=== PATIENT | female | born 1940 | race Caucasian/White ===

== ENCOUNTER 2017-01-26 11:39 | Observation (INO) | payer MEDICARE, OTHER ==
[2017-01-26 12:11] LABS: #Basophils 0.1 thou/uL (0.0-0.2); #Eosinphils 0.1 thou/uL (0.0-0.7); #Lymphocytes 2.8 thou/uL (1.20-3.40); #Monocytes 0.6 thou/uL (0.11-0.59); #Neutrophils 3.5 thou/uL (1.40-6.50); %Basophils 1.4 % (0.0-1.0); %Eosinophils 1.4 % (0.0-10.0); %Lymphocytes 39.3 % (21.0-51.0); %Monocytes 8.8 % (0.0-10.0); Hematocrit 48.7 % (36.0-47.0); Mean Platelet Volume 7.8 fL (7.4-10.4); Red Blood Cell (RBC) Count 5.11 mill/uL (4.20-5.40); White Blood Cell (WBC) Count 7.2 thou/uL (4.8-10.8)
[2017-01-26 12:34] LABS: ALT (SGPT) 13 U/L (8-55); AST (SGOT) 27 U/L (5-34); Alkaline Phosphatase 115 U/L (40-150); Anion Gap 19 mmol/L (10-20); BUN (Urea Nitrogen) 12 mg/dL (9.8-20.1); Bilirubin, Total 0.6 mg/dL (0.2-1.2); Calc. Creatinine Clearance 0 mL/min (70-130); Calcium 9.8 mg/dL (7.8-10.44); Carbon Dioxide 21 mmol/L (23-31); Chloride 105 mmol/L (98-107); Estimated GFR-MDRD 57; Globulin 4.3 g/dL (2.4-3.5); Protein, Total 8.4 g/dL (6.0-8.3)
[2017-01-26 12:37] LABS: Troponin I Less than 0.010 ng/mL (< 0.028)
--- NOTE | 2017-01-26 13:26 | RAD ---
ONE VIEW CHEST: HISTORY: Chest pain. Shortness of breath. COMPARISON: 02/24/2013 FINDINGS' Portable upright chest demonstrates slight elongation of the aorta. Normal cardiac silhouette. Pul monary vessels and pulmonary hilum are normal. No consolidation or mass. No pneumothorax or osseou s abnormality. IMPRESSION: No acute cardiopulmonary process. POS: [facility]
[2017-01-26] MEDS ORDERED: Ondansetron ODT 4 MG TAB SL PRN (15:26)
[2017-01-26] MEDS ORDERED: Ondansetron HCl/PF 4 MG/2 ML Vial IVP PRN ×2 (15:26→15:32)
[2017-01-26] MEDS ORDERED: Acetaminophen 325 MG TAB PO PRN ×2 (15:26→15:32)
[2017-01-26] MEDS ORDERED: Bisacodyl 5 MG TAB PO PRN (15:32)
[2017-01-26] MEDS ORDERED: Guaifenesin DM 100-10/5 ML UDCUP PO PRN (15:32)
[2017-01-26 15:44] LABS: Troponin I 0.013 ng/mL (< 0.028)
[2017-01-26 16:05] VITALS: BMI 25.8
[2017-01-26] MEDS ORDERED: Metoprolol Tartrate 25 MG TAB PO SCH (18:00)
[2017-01-26 18:29] LABS: Troponin I 0.013 ng/mL (< 0.028)
--- NOTE | 2017-01-26 19:17 | HP ---
CHIEF COMPLAINT: Chest pain and shortness of breath. HISTORY OF PRESENT ILLNESS: This is a 76-year-old white female with a history of hypertension, but has not needed any medicines recently, who for the last 2 months has had episodes usually when lying down at night of racing heart associated with shortness of breath and mild chest pressure, this res olved spontaneously within an hour. She is able to go back to sleep; however, today while she was a t the store, she had a sudden onset of shortness of breath and chest pressure substernal, this was m uch more severe. She had to sit down and over the next 30 minutes, the pain and pressure started ra diating to her left arm. She went into urgent care and she was told to come to the emergency room. In the ER, she was found to be in atrial fibrillation with a rate in the 120s. She was given a sin gle dose of IV diltiazem 20 mg, at which point her heart rate dropped to the 80s and she had resolut ion of all of her shortness breath and chest pain, and pain in her arm. Patient now feels back to h er baseline. On the monitor, patient is in a more regular rhythm at 80 beats per minute, unable to tell if this is still atrial fibrillation or if it has gone back into sinus rhythm due to a lot of i nterference with a baseline on the monitor in the ER. PAST MEDICAL HISTORY: 1. Hypertension. 2. Osteoporosis with multiple compression fractures of the thoracic spine. PAST SURGICAL HISTORY: 1. Hysterectomy. 2. Left knee arthroscopy. 3. Cholecystectomy for gallstones. 4. Left breast benign mass excision. ALLERGIES: No known drug allergies. CURRENT MEDICATIONS: Tramadol as needed. SOCIAL HISTORY: No tobacco, alcohol, or illicit drug use. She lives with her . FAMILY HISTORY: Stroke in her grandmother and breast cancer that killed one of her daughters. REVIEW OF SYSTEMS: Constitutional: No fevers, no chills, no weight changes. Eyes: No double visi on or blurred vision. ENT: No congestion, drainage, or sore throat. Cardiovascular: See HPI. Pu lmonary: She has a chronic dry cough and the shortness of breath since resolved in the emergency ro om. No other pulmonary symptoms. Gastrointestinal: No abdominal pain, no nausea or vomiting. Cur rently, no diarrhea or constipation. She does get nauseated easily though especially when she has n ot eaten for a long time, this resolves with food. Genitourinary: No dysuria or hematuria. Muscul oskeletal: No muscle aches or unusual joint pains. Extremities: She does have significant mid carolin k pain around the mid-thoracic region from her thoracic vertebral fractures. Skin: No rashes or ot her lesions that she has noticed. Neurologic: No numbness, tingling, or focal weakness. PHYSICAL EXAMINATION: VITAL SIGNS: On presentation, blood pressure 164/109, pulse 122, respirations 26, O2 sat 98% on ro om air, temperature 97.8. After the diltiazem, her pulse rate is now 76, her blood pressure was 160 /100 when I was in the room; it has fluctuated between that and the 120s here in the emergency room. GENERAL: This is a well-developed elderly female in no apparent distress. HEENT: Pupils equal, round, and reactive to light. Extraocular movements intact. Oropharynx clear without lesions, erythema, or exudate. NECK: Supple. No lymphadenopathy, no thyroid nodules or enlargement, no JVD. HEART: Currently with regular rate and rhythm, no murmurs. LUNGS: Clear to auscultation bilaterally. No wheezes, crackles, or rhonchi. ABDOMEN: Soft, generally tender to palpation, which states is normal since her compression fracture s last year, but with no significant guarding. No masses, no organomegaly. Normoactive bowel sound s. EXTREMITIES: She has trace pretibial edema and loss of her superficial varicosities, otherwise extr emities are without significant abnormality. SKIN: No rashes or other lesions besides the varicose veins. NEUROLOGIC: Cranial nerves intact and equal bilaterally. No facial droop. Deep tendon reflexes ar e 2+ in all extremities and strength is 5/5 in all extremities. PSYCHIATRIC: Alert and oriented x3. Normal mood and affect. Intact judgment. LABORATORY DATA: CBC with mildly elevated hemoglobin and hematocrit of 16.1 and 48.7. The remainde r is normal. Complete metabolic panel was notable only for carbon-dioxide of 21, total protein of 8 .4. The remainder is completely normal. The cardiac marker set is negative x1. Chest x-ray, I do review the chest x-ray done in the emergency room along with the radiologist's rep ort. Her chest x-ray shows no evidence of cardiomegaly, no pulmonary infiltrates, no acute cardiopu lmonary process. ASSESSMENT: 1. Atrial fibrillation with rapid ventricular rate, this is new onset, now appears to either slow t o resolve with single dose of diltiazem. We will put the patient in observation in the hospital and will have Cardiology come to see the patient to determine if strategy for managing this patient's a trial fibrillation, given her age and comorbidities. 2. Chest pain secondary to #1, now resolved. Question of possible ischemic disease that responded to the stress of the atrial fibrillation, as it was not really that fast heartbeat, and I will discu ss with Cardiology and consider a stress test. For now, we will give daily aspirin. 3. Gastrointestinal prophylaxis. Put the patient on Pepcid while in the hospital. 4. Deep venous thrombosis prophylaxis. Put the patient on sequential compression devices and TEDs on bed and will give her for now just prophylactic dose of Lovenox can increase to therapeutic if Ca rdiology decides to anticoagulate her. 5. CODE STATUS: The patient is a FULL CODE. Should she be incapacitated her Connor Alex, Sr would be her medical decision maker.
[2017-01-26] MEDS: Docusate 100 MG CAP PO SCH (21:01)
[2017-01-26] MEDS: Famotidine 20 MG TAB PO SCH (21:01)
[2017-01-27] MEDS: traMADol HCl 50 MG TAB PO PRN ×2 (00:07→10:05)
[2017-01-27 05:44] LABS: #Eosinphils 0.2 thou/uL (0.0-0.7); #Lymphocytes 2.7 thou/uL (1.20-3.40); #Monocytes 0.6 thou/uL (0.11-0.59); #Neutrophils 2.8 thou/uL (1.40-6.50); %Basophils 0.8 % (0.0-1.0); %Eosinophils 2.8 % (0.0-10.0); %Lymphocytes 42.9 % (21.0-51.0); %Monocytes 9.9 % (0.0-10.0); Hematocrit 41.1 % (36.0-47.0); Mean Platelet Volume 7.3 fL (7.4-10.4); Red Blood Cell (RBC) Count 4.27 mill/uL (4.20-5.40); White Blood Cell (WBC) Count 6.4 thou/uL (4.8-10.8)
--- NOTE | 2017-01-27 05:46 | CON ---
DATE OF CONSULTATION: 01/26/2017 HISTORY OF PRESENT ILLNESS: Lynsey Alex is a 76-year-old white female with previous history of hypertension and hypercholesterolemia. She states that approximately 1 year ago, her blood pressure medicine was stopped because she did not need it any more. She was on cholesterol medicines for a period of time , but that was also stopped. Over the last month, she has noted episodes where she will feel her heart beating very rapidly, she will become short of breath, have chest pressure and this will last approximately 5 minutes. She has had 4 such episodes over the last month. Then today at approximately 9:00 a.m., she again had the onset of the same type of symptoms; however, this did not resolve. She came to the emergency room and was found to be in atrial fibrillation with fast ventricular response. She was given Cardizem 20 mg IV and apparently converted to sinus rhythm. She denies any previous episodes such as this except over the last month. PAST MEDICAL HISTORY: Hypertension, hypercholesterolemia. No history of diabetes. OPERATIONS: Left knee surgery, breast lumpectomy and laparoscopic cholecystectomy. MEDICATIONS: Aspirin 325 p.r.n. and tramadol 50 q.4 hours. ALLERGIES: CODEINE, SULFAMETHOXAZOLE. SOCIAL HISTORY: She does not smoke or drink. REVIEW OF SYSTEMS: Twelve point review of systems is otherwise unremarkable except for compression fractures 1 year ago when she had viral infection with significant coughing. PHYSICAL EXAMINATION: VITAL SIGNS: 140/81, pulse 77, sinus rhythm on the monitor. When she presented , her blood pressure was 164/109 with a pulse of 122. HEENT: PERRL. NECK: Supple. CHEST: Clear. CARDIAC: S1 and S2 are normal, without any S3, S4 or murmurs. Carotid upstrokes normal, without bruits. ABDOMEN: Normal bowel sounds, without tenderness or organomegaly. EXTREMITIES: Revealed no clubbing, cyanosis or edema. NEUROLOGIC: Grossly intact. LABORATORY: EKG reveals atrial atrial fibrillation with fast ventricular response as well as possible old inferior infarct. Hemoglobin 16.1, hematocrit 48.7, white count 7200, platelets 251. Sodium 141, potassium 4.0, chloride 105 , carbon dioxide 21, BUN 12, creatinine 0.95. Troponin I x2 are normal. TSH is normal. IMPRESSION: 1. Paroxysmal atrial fibrillation over the last month. 2. Hypertension, on no medications for one year with blood pressure elevated at the time of admission. 3. Chest discomfort. 4. History of hypercholesterolemia. 5. History of compression fractures. PLAN: Ms. Alex will be started on low dose metoprolol. Echocardiogram will be performed to assess left ventricular function. Also, with her chest discomfort associated with the atrial fibrillation she will undergo adenosine Cardiolite testing. MTDD
[2017-01-27 06:07] LABS: Anion Gap 12 mmol/L (10-20); BUN (Urea Nitrogen) 16 mg/dL (9.8-20.1); Calc. Creatinine Clearance 58 mL/min (70-130); Calcium 8.6 mg/dL (7.8-10.44); Carbon Dioxide 23 mmol/L (23-31); Chloride 107 mmol/L (98-107); Cholesterol 210 mg/dl (< 200 Desired); Estimated GFR-MDRD 70; LDL Cholesterol, Calculated 149 mg/dL
[2017-01-27] MEDS ORDERED: Aspirin 325 mg Enteric Coated Tablet PO PRN (07:20)
--- NOTE | 2017-01-27 07:22 | PDOC.PN ---
- Subjective Encounter Start Date: 01/27/17 Encounter Start Time: 07:25 Subjective: Patient with a few self limited episodes of palpitations and SOB overnight. -: Remained in SR on monitor without A-fib overnight. No chest pain. Doing -: well this AM, just a little nauseated from not eating which is nml for her. - Objective Resuscitation Status: Resuscitation Status FULL:Full Resuscitation MAR Reviewed: Yes Vital Signs & Weight: Vital Signs (12 hours) Temp Pulse Resp BP Pulse Ox 01/27/17 05:05 97.5 F L 62 16 134/61 95 01/26/17 23:43 97.2 F L 62 18 128/70 95 01/26/17 19:27 98.2 F 80 16 185/72 H 95 Weight Weight 136 lb 11.2 oz I&O: 01/26/17 01/27/17 01/28/17 06:59 06:59 06:59 Intake Total 500 Output Total 335 Balance 165 Result Diagrams: 01/27/17 05:20 01/27/17 05:20 EKG Reviewed by me: Yes (Sinus rhythm all night) Phys Exam - Physical Examination Constitutional: NAD HEENT: moist MMs Respiratory: no wheezing, no rales, no rhonchi, clear to auscultation bilateral Cardiovascular: RRR, no significant murmur Gastrointestinal: soft, positive bowel sounds Musculoskeletal: no edema Neurological: non-focal, moves all 4 limbs Psychiatric: normal affect, A&O x 3 Dx/Plan (1) Atrial fibrillation with RVR Code(s): I48.91 - UNSPECIFIED ATRIAL FIBRILLATION Status: Acute Comment: ECHO, Stress test, Metoprolol (2) Chest pain Code(s): R07.9 - CHEST PAIN, UNSPECIFIED Status: Resolved (3) Hypertension Code(s): I10 - ESSENTIAL (PRIMARY) HYPERTENSION Status: Chronic - Plan cont current plan of care, out of bed/ambulate, DVT proph w/lovenox * . - Discharge Day Encounter end time: 07:45
[2017-01-27] MEDS: Docusate 100 MG CAP PO SCH ×2 (09:28→20:07)
[2017-01-27] MEDS: Enoxaparin Sodium 40 MG/0.4 ML SYRINGE SC SCH (09:29)
[2017-01-27] MEDS: Ondansetron ODT 4 MG TAB PO PRN (09:29)
[2017-01-27] MEDS ORDERED: Nitroglycerin 0.4 MG TAB (25 Tab Bottle) ONE (09:56)
[2017-01-27 11:45] LABS: Troponin I Less than 0.010 ng/mL (< 0.028)
[2017-01-27] MEDS: Famotidine 20 MG TAB PO SCH ×2 (13:02→20:07)
[2017-01-27] MEDS: Atorvastatin Calcium 40 MG TAB PO SCH (20:07)
--- NOTE | 2017-01-28 07:52 | PDOC.PN ---
- Subjective Encounter Start Date: 01/28/17 Encounter Start Time: 09:00 Subjective: Patient with no more chest pain. No more palpitations this AM. - Objective Resuscitation Status: Resuscitation Status FULL:Full Resuscitation MAR Reviewed: Yes Vital Signs & Weight: Vital Signs (12 hours) Temp Pulse Resp BP Pulse Ox 01/28/17 07:19 97.3 F L 63 16 175/77 H 95 01/28/17 03:00 97.8 F 62 16 134/63 93 L 01/27/17 23:22 97.7 F 57 L 15 144/64 H 94 L 01/27/17 20:08 97.3 F L 59 L 15 Weight Weight 139 lb I&O: 01/27/17 01/28/17 01/29/17 06:59 06:59 06:59 Intake Total 500 770 Output Total 335 300 Balance 165 470 Result Diagrams: 01/27/17 05:20 01/27/17 05:20 Phys Exam - Physical Examination Constitutional: NAD HEENT: moist MMs Respiratory: no wheezing, no rales, no rhonchi Cardiovascular: RRR, no significant murmur Gastrointestinal: soft, positive bowel sounds Neurological: non-focal, moves all 4 limbs Psychiatric: normal affect, A&O x 3 Dx/Plan (1) Atrial fibrillation with RVR Code(s): I48.91 - UNSPECIFIED ATRIAL FIBRILLATION Status: Acute Comment: ECHO, Stress test, Metoprolol (2) Chest pain Code(s): R07.9 - CHEST PAIN, UNSPECIFIED Status: Resolved Comment: Recurrent pain yesterday without afib, only resting portion ST done, active part today (3) Hypertension Code(s): I10 - ESSENTIAL (PRIMARY) HYPERTENSION Status: Chronic - Plan cont current plan of care, out of bed/ambulate Stress test and cath if needed per cardiology. * . - Discharge Day Encounter end time: 09:30
[2017-01-28] MEDS: Docusate 100 MG CAP PO SCH ×3 (08:35→21:28)
[2017-01-28] MEDS: Ondansetron ODT 4 MG TAB PO PRN (08:35)
[2017-01-28] MEDS: Famotidine 20 MG TAB PO SCH ×2 (08:35→20:01)
[2017-01-28] MEDS: Enoxaparin Sodium 40 MG/0.4 ML SYRINGE SC SCH (13:24)
--- NOTE | 2017-01-28 13:34 | NM ---
CARDIAC SPECT: HISTORY: A 76-year-old female with chest pain, hypertension, dyslipidemia, and atrial fibrillation. TECHNIQUE: A myocardial perfusion scan was performed using the single-isotope 1-day protocol with Technetium 99m sestamibi. Nine mCi were injected intravenously for the rest exam followed by 30 mCi for the stress study. Pharmacologic stress with adenosine is monitored and interpreted by [facility] Nurse Pedro tioner. FINDINGS: Homogeneous tracer distribution is seen in the myocardial segments on stress and rest images without fixed or reversible defects. The TID ratio measures 1.90. GATED SPECT LVEF: 84%. WALL MOTION EXAM: Normal. IMPRESSION: 1. TID ratio is 1.90. Clinical correlation is recommended. 2. No reversible or fixed defects are identified. POS: [facility]
[2017-01-28] MEDS ORDERED: ADENOSINE 60 MG/20 ML VIAL ONE (14:34)
[2017-01-28] MEDS: traMADol HCl 50 MG TAB PO PRN (17:17)
[2017-01-28] MEDS ORDERED: Communication Order-Pharmacy FS SCH (18:30)
[2017-01-28] MEDS: Atorvastatin Calcium 40 MG TAB PO SCH (20:01)
[2017-01-28] MEDS: Nitroglycerin 2% Ointment 1 INCH/1 GM Packet TOP SCH (21:27)
[2017-01-29] MEDS: Famotidine 20 MG TAB PO SCH (05:07)
[2017-01-29] MEDS: traMADol HCl 50 MG TAB PO PRN ×2 (05:08→09:18)
[2017-01-29] MEDS: Docusate 100 MG CAP PO SCH (05:09)
[2017-01-29] MEDS: Nitroglycerin 2% Ointment 1 INCH/1 GM Packet TOP SCH (05:09)
[2017-01-29] MEDS ORDERED: Sodium Chloride 0.9% 1,000 ML IV SCH (06:00)
[2017-01-29] MEDS ORDERED: Heparin 10,000 UNITS/1 ML VIAL ONE (06:41)
[2017-01-29] MEDS ORDERED: Heparin 1000 UNIT/NS 500ML(OR) 1,000 ML ONE (06:42)
[2017-01-29] MEDS ORDERED: Fentanyl 100 MCG/2 ML VIAL ONE (07:16)
[2017-01-29] MEDS ORDERED: Midazolam HCl 2 mg/2 ml Vial ONE (07:16)
[2017-01-29] MEDS ORDERED: Protamine Sulfate 50 MG/5 ML VIAL ONE (07:37)
[2017-01-29] MEDS ORDERED: Sodium Chloride 0.9% 200 ML IV SCH (07:45)
--- NOTE | 2017-01-29 07:47 | EKG ---
Test Reason : Blood Pressure : / mmHG Vent. Rate : 071 BPM Atrial Rate : 071 BPM P-R Int : 248 ms QRS Dur : 070 ms QT Int : 412 ms P-R-T Axes : 047 -16 051 degrees QTc Int : 447 ms Sinus rhythm with 1st degree A-V block Inferior infarct (cited on or before 27-DEC-2007) Abnormal ECG When compared with ECG of 26-JAN-2017 11:42, (Unconfirmed) Sinus rhythm has replaced Atrial fibrillation Vent. rate has decreased BY 50 BPM Serial changes of Inferior infarct Present Confirmed by POOJA YOUNGER, SMavis ([id number]) on 01/29/2017 7:46:48 AM Referred By: JOYCE Confirmed By:DR. Michael PATTON MD
[2017-01-29] MEDS ORDERED: Ketorolac Tromethamine 30 MG/ML VIAL IVP PRN (11:20)
[2017-01-29] MEDS ORDERED: Iopamidol 370 76% 100 ML VIAL ONE (15:10)
[2017-01-29 16:12] VITALS: BP 126/59; TEMP 98.1
--- NOTE | 2017-01-30 00:49 | DIS ---
DATE OF ADMISSION: 01/26/2017 DATE OF DISCHARGE: 01/29/2017 PRIMARY DISCHARGE DIAGNOSIS: Chest pain. SECONDARY DISCHARGE DIAGNOSES: 1. Hypertension. 2. Osteoporosis with multiple compression fractures. HOSPITAL COURSE: The patient is a 76-year-old female with a history of hypertension that presented w ith complaints of palpitations, chest pain, and shortness of breath. The patient was admitted and se en by the [facility] service. The patient had an echocardiogram which showed an ejection fraction of 50% -55%, mild mitral regurgitation, mild tricuspid regurgitation and mild pulmonic regurgitation. The patient also underwent an angiogram. The angiogram showed no stenosis in the left main coronar y artery, no disease in the left anterior descending coronary artery, nor the RCA. There was 20% hermann nosis of the left circumflex. The patient was deemed stable for discharge with outpatient follow up and Cardiology. DISCHARGE DISPOSITION: To home. DISCHARGE DIET: Heart healthy. DISCHARGE MEDICATIONS: Please see medication rec list. PHYSICAL EXAMINATION: HEAD: Normocephalic, atraumatic. EYES: PERRL. Extraocular muscles intact. CARDIAC: Regular rate and rhythm, no murmurs, rubs or gallops. LUNGS: Clear to auscultation. ABDOMEN: Nontender, nondistended. EXTREMITIES: No clubbing, cyanosis or edema. FOLLOWUP: The patient is to follow up with her PCP within 1-2 weeks. She is to follow up in Cardiol ogy Clinic with Dr. Moreno, who was going to give the patient a 30-day heart monitor to monitor for cardiac arrhythmias.
--- NOTE | 2017-03-06 16:03 | EKG ---
Test Reason : Blood Pressure : / mmHG Vent. Rate : 121 BPM Atrial Rate : 153 BPM P-R Int : 000 ms QRS Dur : 064 ms QT Int : 320 ms P-R-T Axes : 000 -13 054 degrees QTc Int : 454 ms Atrial fibrillation with rapid ventricular response Inferior infarct , age undetermined Abnormal ECG Confirmed by HERNAN BHAKTA MD ([id number]), primer expeditor and drier SERGEY PERRY ([id number]) on 03/06/2017 4:02:53 PM Referred By: Confirmed By:HERNAN BHAKTA MD
--- NOTE | 2017-03-14 13:35 | STRESS ---
Acquisition Time: 2017-01-28 10:39:58 Total Exercise Time: 00:04:00 Test Indications: CHEST PAIN Medications: Protocol: ADENOSINE Max HR: 078 BPM 54% of Pred: 143 BPM Max BP: 164/088 mmHG Max Work Load: 1.0 METS RESTING ECG: NORMAL SINUS RHYTHM AT 60 BPM WITH 1ST DEGREE AV BLOCK, POOR R-WAVE PROGRESSION, LOW VOLTAGE, AND OLD INFERIOR INFARCTION NORMAL BP RESPONE SYMPTOMS: CHEST PAIN AND DYSPNEA ECTOPY: RARE PAC'S ECG STRESS: NO SIGNIFICANT CHANGES INTERPRETATION: NEGATIVE ECG/ AWAIT NUCLEAR IMAGES FOR DEFINITIVE DIAGNOSIS Confirmed by MIKE KURGER MD ([id number]) on 03/14/2017 1:35:17 PM Referred By: MD CORREIA Confirmed By:MIKE KRUGER MD
== END 2017-01-29 18:00 | disposition home or self-care (01) ==
LOC: ERS 11:39 → 2SW 13:57
PROVIDERS: ADMIT Emergency Medicine; ATTEND Emergency Medicine
DX: R07.89 Other chest pain (principal); I10 Essential (primary) hypertension; M81.8 Other osteoporosis without current pathological fracture; Z88.5 Allergy status to narcotic agent; Z88.2 Allergy status to sulfonamides; Z91.012 Allergy to eggs; Z79.899 Other long term (current) drug therapy
CPT/HCPCS: 71010; 78452; 80048; 80061; 82553 ×2; 84484 ×3; 85025; 85347; 93005 ×2; 93017; 93306; 93458; 93798; 96361; 96372; 96374; 96375; 97139 ×2; 99285; A9500; C1769; G0378 ×2; 36415; 80053; 84443; 93010; 99152; A4216; J0153; J1644; J1650; J1885; J2250; J2720; J3010; Q0162

== ENCOUNTER 2017-02-20 14:24 | Outpatient (CLI) | payer MEDICARE ==
[2017-02-20 15:38] LABS: Mean Platelet Volume 7.9 fL (7.4-10.4); Red Blood Cell (RBC) Count 4.61 mill/uL (4.20-5.40); White Blood Cell (WBC) Count 7.6 thou/uL (4.8-10.8)
[2017-02-20 15:59] LABS: ALT (SGPT) 18 U/L (8-55); AST (SGOT) 23 U/L (5-34); Alkaline Phosphatase 123 U/L (40-150); Anion Gap 11 mmol/L (10-20); BUN (Urea Nitrogen) 15 mg/dL (9.8-20.1); Bilirubin, Direct 0.3 mg/dL (0.1-0.3); Bilirubin, Total 0.7 mg/dL (0.2-1.2); Calc. Creatinine Clearance 0 mL/min (70-130); Calcium 9.1 mg/dL (7.8-10.44); Carbon Dioxide 28 mmol/L (23-31); Chloride 105 mmol/L (98-107); Cholesterol 151 mg/dl (< 200 Desired); Estimated GFR-MDRD 67; LDL Cholesterol, Calculated 81 mg/dL
== END 2017-02-20 14:25 | disposition home or self-care (01) ==
LOC: LABBT 14:24
PROVIDERS: ATTEND Internal Medicine Cardiovascular Disease
DX: Z01.818 Encounter for other preprocedural examination (principal); I49.5 Sick sinus syndrome
CPT/HCPCS: 80048; 80061; 80076; 85027

== ENCOUNTER 2017-02-23 05:55 | Observation (INO) | payer MEDICARE ==
[2017-02-23] MEDS ORDERED: Gentamicin 80 MG/2 ML VIAL ONE (06:46)
[2017-02-23] MEDS ORDERED: CEFAZOLIN/Water 2 GM/20 ML SYRINGE ONE (06:46)
[2017-02-23] MEDS ORDERED: CEFAZOLIN 1 GM VIAL ONE (06:46)
[2017-02-23] MEDS ORDERED: Midazolam HCl 2 mg/2 ml Vial ONE (07:09)
[2017-02-23] MEDS ORDERED: Fentanyl 100 MCG/2 ML VIAL ONE (07:09)
[2017-02-23] MEDS ORDERED: Lidocaine 1% (PF) 30 ML VIAL ONE ×2 (07:15→07:27)
[2017-02-23] MEDS ORDERED: Dronedarone HCl 400 MG TAB PO SCH (10:00)
[2017-02-23 10:56] VITALS: BMI 25.9
--- NOTE | 2017-02-23 11:10 | RAD ---
PORTABLE CHEST: Date: 02/23/17 HISTORY: Postop cardiac device placement. COMPARISON: 01/26/17. FINDINGS: Lungs are clear. No infiltrate, pneumothorax, or vascular congestion. Heart size upper normal and sta ble. A dual lead pacemaker device has been placed and leads appear in adequate position. IMPRESSION: No acute process. POS: [facility]
[2017-02-23] MEDS: traMADol HCl 50 MG TAB PO PRN ×2 (11:20→20:08)
[2017-02-23] MEDS: Cephalexin 250 MG CAP PO SCH ×3 (11:22→20:02)
[2017-02-23] MEDS: Aspirin 81 mg Enteric Coated Tablet PO SCH (11:23)
[2017-02-23] MEDS ORDERED: Ondansetron HCl/PF 4 MG/2 ML Vial SLOW IVP PRN (12:55)
[2017-02-23] MEDS: Dronedarone HCl 400 MG TAB PO SCH (17:34)
[2017-02-23] MEDS ORDERED: Atorvastatin Calcium 40 MG TAB PO SCH (21:00)
[2017-02-24] MEDS: traMADol HCl 50 MG TAB PO PRN ×2 (03:48→08:07)
[2017-02-24 07:47] VITALS: TEMP 98.3
[2017-02-24] MEDS: Aspirin 81 mg Enteric Coated Tablet PO SCH (08:08)
[2017-02-24] MEDS: Dronedarone HCl 400 MG TAB PO SCH (08:08)
[2017-02-24] MEDS: Cephalexin 250 MG CAP PO SCH (08:08)
[2017-02-24 11:38] VITALS: BP 126/61
--- NOTE | 2017-02-24 13:36 | CCL ---
CARDIAC PROCEDURE: PROCEDURE: Permanent pacemaker placement, MRI compatible with atrial therapies. INDICATION: Six-second pause, atrial flutter, atrial fibrillation requiring therapy. PROCEDURE DETAIL: The patient was brought to the cardiac [facility]aker laboratory and the left subclavian area was prepped and draped. The patient was given Versed 1 mg and fentanyl 25 mg IV. During the case, fentanyl 25 mg IV was repeated. 1% lidocaine was infiltrated into the area. A J-wire was placed into the left subclavian vein. Pacemaker pocket was manufactured using blunt and sharp dissection with electrocautery for hemostasis. An antibiotic solution-soaked gauze was placed into the pocket. A 9 [place] sheath was placed over the J wire and with the J- wire remaining in place, the ventricular lead was inserted and the sheath was peeled away. The 7 [place] sheath was then inserted and the atrial lead was inserted and the sheath was peeled away. The right ventricular lead was advanced to the RV apex and the corkscrew was advanced. The J-wire was then screwed into the right atrium. Right ventricular lead - R-wave 11.2, impedance 1055, threshold 0.3 volts. Right atrial lead - P-wave 3.0, impedance 614, threshold 0.4 volts. The tabs on both sutured tie-downs were removed and both leads were secured in place with 2 sutures of 0 silk. There continued to be subclavian vein bleeding back through the tract and hemostasis was obtained by placement of a mattress suture of the tissue around the leads. The antibiotic solution-soaked gauze was then removed and the subcutaneous pocket was irrigated with copious amounts of antibiotic solution. The pacemaker was attached to the leads, placed into the pocket, and secured in place with 1 suture of 0 silk. The incision was then closed using 2 layers of running 3-0 Vicryl, 1 layer running 4-0 Vicryl. Dermabond was placed on the incision. POS: [facility]
--- NOTE | 2017-02-24 15:16 | DIS ---
DISCHARGE DIAGNOSES: 1. Placement of dual chamber MRI compatible pacemaker with atrial therapies. 2. Sick sinus syndrome with atrial fibrillation during previous admission, atrial flutter on a monitor at home, and 6-second pause on monitor at home. 3. Mild coronary artery disease with 20% lesion in the mid circumflex. 4. Hypertension, well controlled. 5. Hypercholesterolemia with atorvastatin increased. 6. Osteoporosis with vertebral compression fractures. DISCHARGE DISPOSITION: The patient will have a suture line check in 1 week and 3 months to undergo reprograming of her pacemaker and turning on of the atrial therapies. DISCHARGE MEDICATIONS: Ecotrin 81 mg daily, atorvastatin 80 mg daily ( increased from 40), Keflex 250 t.i.d. x4 days, Multaq 400 mg b.i.d., metoprolol 50 mg b.i.d., Nexium 20 mg every 2 days. On 03/02/2017, she will be started on Eliquis 5 mg b.i.d. for stroke prophylaxis with her atrial arrhythmias. HOSPITAL COURSE: Ms. Alex underwent placement of a dual chamber pacemaker after finding of a 6-second pause on her monitor and feeling at that time as if she would pass out. She also had frequent episodes of atrial flutter during that monitoring session. Pacemaker was placed. The patient tolerated the procedure well. She was started on Multaq 400 mg b.i.d. and observed overnight. Eliquis will be started in 1 week. Sodium 148, potassium 4.2, chloride 105, carbon dioxide 28, BUN 15, creatinine 0.83. LDL was 81 after almost 1 month of atorvastatin 40 and this was then increased to 80 mg and will be rechecked at the time of followup in 3 months. MTDD
--- NOTE | 2017-03-14 13:19 | EKG ---
Test Reason : Blood Pressure : / mmHG Vent. Rate : 060 BPM Atrial Rate : 060 BPM P-R Int : 262 ms QRS Dur : 080 ms QT Int : 446 ms P-R-T Axes : 045 -08 045 degrees QTc Int : 446 ms Electronic atrial pacemaker Inferior infarct (cited on or before 27-DEC-2007) Abnormal ECG When compared with ECG of 27-JAN-2017 11:00, Electronic atrial pacemaker has replaced Sinus rhythm Confirmed by MIKE KRUGER MD ([id number]) on 03/14/2017 1:19:38 PM Referred By: KEVIN Confirmed By:MIKE KRUGER MD
== END 2017-02-24 10:36 | disposition home or self-care (01) ==
LOC: CCL 05:55 → 2SW 09:00
PROVIDERS: ADMIT Internal Medicine Cardiovascular Disease; ATTEND Internal Medicine Cardiovascular Disease
DX: Z45.018 Encounter for adjustment and management of other part of cardiac pacemaker (principal); I49.5 Sick sinus syndrome; I48.91 Unspecified atrial fibrillation; I48.92 Unspecified atrial flutter; I25.10 Atherosclerotic heart disease of native coronary artery without angina pectoris; I10 Essential (primary) hypertension; E78.00 Pure hypercholesterolemia, unspecified; M80.08XA Age-related osteoporosis with current pathological fracture, vertebra(e), initial encounter for fracture; Z79.899 Other long term (current) drug therapy; Z90.710 Acquired absence of both cervix and uterus; Z90.49 Acquired absence of other specified parts of digestive tract; Z88.5 Allergy status to narcotic agent; Z88.2 Allergy status to sulfonamides; Z91.012 Allergy to eggs
CPT/HCPCS: 33208; 71010; 93005; 93798 ×2; C1785; C1898 ×2; G0378; 93010; 99152; 99153; A4216; J0690; J1580; J2001; J2250; J3010

== ENCOUNTER 2017-06-02 10:23 | Outpatient (CLI) | payer MEDICARE | END 2017-06-02 10:24 | disposition home or self-care (01) | LOC: BICMAMMO 10:23 | PROVIDERS: ATTEND Internal Medicine Rheumatology | DX: M81.0 Age-related osteoporosis without current pathological fracture (principal) | CPT/HCPCS: 77080 ==

== ENCOUNTER 2017-07-01 12:36 | Outpatient (CLI) | payer MEDICARE ==
--- NOTE | 2017-07-01 17:12 | MRI ---
MRI LUMBAR SPINE NONCONTRAST: DATE: 07-01-17 HISTORY: 77-year-old female with S22.060A closed wedge compression fracture. Low back pain. COMPARISON: None. TECHNIQUE: Patient has an MR conditional Medtronic pacemaker. Appropriate adjustments, precautions, and protocol were specifically followed for MRI of lumbar spine. FINDINGS: There is lateral curvature of the lower thoracic/upper lumbar spine. There is a transitional level at the lumbosacral junction. For the purposes of this report, that level will somewhat arbitrarily be d esignated as L6. The bone marrow signal is normal. There are Baastrup's changes throughout the entire lumbar spine (degenerative changes between hypertrophic, kissing spinus processes). Perivertebral sp aces are unremarkable. Multiple bilateral parapelvic renal cysts. T12-L1: Only imaged on sagittal sequences. Schmorl's node at the superior endplate of L1 associated w ith shallow, broad based depression of the superior endplate of L1. Maximum loss of height of L1 is a pproximately 20-35%. There is no bone marrow edema associated with this, and therefore, this is old. No bony retropulsion. L1-2: Conus medullaris terminates at this level. Disc space maintained. No central stenosis. Minimal disc bulge. No high grade neural foraminal stenosis. L2-3: Essentially normal. L3-4: Mild degenerative facet changes. Normal disc. No central stenosis. Mild bilateral foraminal susanne rowing stenosis. L4-5: Disc space maintained. Bilateral mild to moderate degenerative facet changes. No central stenos is. Bilateral moderate neural foraminal stenosis. L5-6: Moderate to severe disc space narrowing. Mild diffuse disc bulge. Mild to moderate bilateral ne ural foraminal stenosis. Moderate to severe bilateral degenerative facet changes. Mild lateral recess stenosis bilaterally. No high grade central stenosis. L6-S1: Bilateral facet joints are slightly hypoplastic. There is probable bilateral ankylosis of the enlarged L6 transverse processes with the bilateral S1 alae. Moderate to severe disc space narrowing, probably almost entirely on a developmental basis. No neural foraminal stenosis. No acquired central spinal canal stenosis. IMPRESSION: 1. Transitional level at lumbosacral junction which is arbitrarily designated as L6 for the purposes of this report. 2. Mild old compression fracture of L1. 3. No acute or subacute compression fracture. 4. High grade bilateral facet osteoarthrosis, and high grade degenerative disc changes, at L5-6. 5. No high grade central spinal canal stenosis at any level. SAGRARIO Suggs POS: [facility]
== END 2017-07-01 12:37 | disposition home or self-care (01) ==
LOC: MRI 12:36
PROVIDERS: ATTEND Nurse Practitioner Family
DX: S22.060A Wedge compression fracture of T7-T8 vertebra, initial encounter for closed fracture (principal); M47.896 Other spondylosis, lumbar region; Z87.81 Personal history of (healed) traumatic fracture
CPT/HCPCS: 72148

== ENCOUNTER 2017-07-13 09:22 | Outpatient (CLI) | payer MEDICARE ==
--- NOTE | 2017-07-13 12:06 | MRI ---
MRI THORACIC SPINE WITHOUT CONTRAST: Date: 07/13/17 INDICATION: Mid to upper back pain with history of T8 compression abnormality. COMPARISON: MRI lumbar spine dated 07/01/17. FINDINGS: There is an acute inferior end plate compression fracture of T10 with approximately 25% loss of heigh t within the central aspect of the vertebra. No retropulsion of bone fragments is noted. There is a s ubacute appearing, moderate to severe wedge compression abnormality of T8 with some mild retropulsion of bone and disc material within the anterior aspect of the subarachnoid space at T8-T9 causing mild central canal narrowing. There is accentuated kyphotic angulation at the T8 vertebral level due to t he wedge compression abnormality that has lost approximately 75-80% loss of height. No additional acu te fracture is evident. There is mild multilevel disc degenerative disease. No appreciable neural for aminal narrowing is demonstrated. IMPRESSION: 1. Acute inferior end plate compression abnormality of T10 with loss of approximately 25% loss o f height within the central aspect of the T10 vertebra. 2. Moderate to severe subacute appearing wedge compression abnormality of T8 with mild central canal narrowing seen at T8-T9 due to retropulsion of bone fragment from the posterior inferior aspect of T 8 vertebra, as well as a broad based disc bulge at T8-T9. The compression abnormality is causing mode rate kyphotic angulation at T8. POS: MELISA
== END 2017-07-13 09:23 | disposition home or self-care (01) ==
LOC: MRI 09:22
PROVIDERS: ATTEND Nurse Practitioner Family
DX: S22.060A Wedge compression fracture of T7-T8 vertebra, initial encounter for closed fracture (principal); S22.079A Unspecified fracture of T9-T10 vertebra, initial encounter for closed fracture; M48.04 Spinal stenosis, thoracic region; M51.24 Other intervertebral disc displacement, thoracic region
CPT/HCPCS: 72146

== ENCOUNTER 2019-03-06 12:26 | Emergency (ER) | payer MEDICARE ==
[~2019-03-06 12:26] MED LIST: Iopamidol-370 76% 500 ML 1 ML ONE
--- NOTE | 2019-03-06 13:30 | RAD ---
EXAM: Portable chest PROVIDED CLINICAL HISTORY: Dyspnea COMPARISON: 02/23/2017 FINDINGS: Cardiac and mediastinal silhouette is unchanged in appearance. Left subclavian cardiac pacing device is again noted with lead tips in similar positions. No focal consolidation, pleural fluid or pneumothorax evident. IMPRESSION: No evidence for an acute cardiopulmonary process.
[2019-03-06 13:34] LABS: Actual Bicarbonate (HCO3a) 25.8 mEq/L (22-28); Analyzer IN Cardio ER; Base Excess (BEa) 1.1 mEq/L (-2.0 to +3.0); CO2 Tension 41.6 mmHg (35.0-45.0); Calcium, Ionized 1.16 mmol/L (1.12-1.30); Carboxyhemoglobin (COHb) 0.3 gm% (0.0-3.0); O2 Tension (PaO2) 64.7 mmHg (> 70.0); Puncture Site RRA; pH, Arterial 7.41 (7.35-7.45)
[2019-03-06 13:59] LABS: #Eosinphils 0.6 thou/uL (0.0-0.7); #Lymphocytes 1.5 thou/uL (1.20-3.40); #Monocytes 0.8 thou/uL (0.11-0.59); #Neutrophils 3.9 thou/uL (1.40-6.50); %Basophils 0.4 % (0.0-1.0); %Eosinophils 8.4 % (0.0-10.0); %Lymphocytes 22.7 % (21.0-51.0); %Monocytes 11.4 % (0.0-10.0); Hemoglobin 12.8 g/dL (12.0-16.0); Mean Corpuscular HGB CONC 34.8 g/dL (32.0-36.0); Mean Corpuscular Volume 94.6 fL (78.0-98.0); Mean Platelet Volume 8.8 fL (7.4-10.4); Platelet Count 182 thou/uL (130-400); RBC Distribution Width 12.8 % (11.5-14.5); Red Blood Cell (RBC) Count 3.88 mill/uL (4.20-5.40); White Blood Cell (WBC) Count 6.7 thou/uL (4.8-10.8)
[2019-03-06 14:14] LABS: Bilirubin Negative (Negative); Blood, Urine Negative (Negative); Clarity Clear (Clear); Glucose, Urine (Dipstick) Normal (Negative); Leukocyte Negative Leu/uL (Negative); Nitrite Negative (Negative); Protein, Urine (Dipstick) Negative (Neg-Trace); Urobilinogen Normal mg/dL (Less than 2)
[2019-03-06 14:18] LABS: ALT (SGPT) 19 U/L (8-55); AST (SGOT) 24 U/L (5-34); Albumin 3.9 g/dL (3.4-4.8); Alkaline Phosphatase 115 U/L (40-110); Anion Gap 14 mmol/L (10-20); BUN (Urea Nitrogen) 15 mg/dL (9.8-20.1); Bilirubin, Total 0.8 mg/dL (0.2-1.2); CK (CPK) 136 U/L (29-168); Calc. Creatinine Clearance 0 mL/min (70-130); Calcium 8.8 mg/dL (7.8-10.44); Carbon Dioxide 24 mmol/L (23-31); Chloride 104 mmol/L (98-107); Estimated GFR-MDRD 57; Globulin 2.5 g/dL (2.4-3.5); Glucose 100 mg/dL (83-110); Lipase 19 U/L (8-78); Protein, Total 6.4 g/dL (6.0-8.3); Sodium 138 mmol/L (136-145)
[2019-03-06] MEDS ORDERED: Magnesium 2 GM/50 ML BAG (IN WATER) ONE (14:33)
[2019-03-06] MEDS ORDERED: Dexamethasone 4 mg/ml Vial ONE (14:33)
--- NOTE | 2019-03-06 15:55 | CT ---
EXAM: CT pulmonary angiogram with IV contrast and 3-D MIP reconstructions PROVIDED CLINICAL HISTORY: Cough COMPARISON: None FINDINGS: There is no evidence for central or segmental pulmonary embolus. The lungs are free of significant opacity. No pleural fluid or pneumothorax apparent. No evidence for thoracic lymph node enlargement. The airway appears patent and of normal caliber. The visualized portions of the upper abdomen demonstrate no acute findings. The osseous structures demonstrate no concerning lytic or blastic lesions. Remote appearing compressi on deformity of T8. IMPRESSION: No evidence for central or segmental pulmonary embolus.
--- NOTE | 2019-03-08 14:24 | EKG ---
Test Reason : Blood Pressure : / mmHG Vent. Rate : 064 BPM Atrial Rate : 064 BPM P-R Int : 000 ms QRS Dur : 068 ms QT Int : 434 ms P-R-T Axes : 199 -11 040 degrees QTc Int : 447 ms Atrial-paced rhythm with prolonged AV conduction Inferior infarct , age undetermined Abnormal ECG Confirmed by ALYSA YOUNGER, SARAH ([id number]), photography editor ADELINA BENÍTEZ ([id number]) on 03/08/2019 2:23:54 PM Referred By: Confirmed By:SARAH WATT MD
== END 2019-03-06 17:36 | disposition home or self-care (01) ==
LOC: ERS 12:26
DX: J18.9 Pneumonia, unspecified organism (principal); I48.91 Unspecified atrial fibrillation; I10 Essential (primary) hypertension; Z79.82 Long term (current) use of aspirin; Z79.899 Other long term (current) drug therapy
CPT/HCPCS: 36415; 71045; 71275; 80053; 81003; 82550; 82805; 83605; 83690; 83880; 84484; 85025; 85379; 87040; 87804; 93005; 94640; 96365; 96366; 96367; 96375; J1100; J1956; J3475; J7620; Q9967

== ENCOUNTER 2019-03-10 17:48 | Emergency (ER) | payer MEDICARE ==
--- NOTE | 2019-03-10 18:36 | RAD ---
EXAM: Two views chest PROVIDED CLINICAL HISTORY: Cough. COMPARISON: 03/06/2019 FINDINGS: A dual-lead left subclavian cardiac pacemaking device remains in place. Cardiac silhouette is mildly enlarged. The pulmonary vasculature is within normal limits. Vascular calcifications are seen in the thoracic and visualized abdominal aorta. There are wedge-shaped compression fractures involving t he T8 and T10 vertebral bodies. These fractures were noted on MRI thoracic spine on 07/13/2017. Degenerative changes are seen in the mid thoracic spine. IMPRESSION: 1. No acute cardiopulmonary process. 2. Mild cardiomegaly. 3. Compression fractures T8 and T10 vertebral bodies with severe height loss involving the compressio n fracture of the T8 vertebral body. These findings were better visualized and evaluated on prior MRI thoracic spine.
[2019-03-10 19:09] LABS: #Basophils 0.1 thou/uL (0.0-0.2); #Eosinphils 0.4 thou/uL (0.0-0.7); #Lymphocytes 2.7 thou/uL (1.20-3.40); #Monocytes 0.8 thou/uL (0.11-0.59); #Neutrophils 4.9 thou/uL (1.40-6.50); %Basophils 0.7 % (0.0-1.0); %Eosinophils 4.8 % (0.0-10.0); %Lymphocytes 30.1 % (21.0-51.0); %Monocytes 8.8 % (0.0-10.0); %Neutrophils 55.5 % (42.0-75.0); Mean Corpuscular HGB CONC 34.2 g/dL (32.0-36.0); Mean Corpuscular Hemoglobin 32.1 pg (27.0-31.0); Mean Corpuscular Volume 93.9 fL (78.0-98.0); Mean Platelet Volume 7.5 fL (7.4-10.4); Platelet Count 213 thou/uL (130-400); RBC Distribution Width 12.8 % (11.5-14.5); Red Blood Cell (RBC) Count 4.04 mill/uL (4.20-5.40); White Blood Cell (WBC) Count 8.9 thou/uL (4.8-10.8)
[2019-03-10 19:33] LABS: ALT (SGPT) 26 U/L (8-55); AST (SGOT) 32 U/L (5-34); Albumin 3.9 g/dL (3.4-4.8); Alkaline Phosphatase 109 U/L (40-110); Anion Gap 11 mmol/L (10-20); BUN (Urea Nitrogen) 13 mg/dL (9.8-20.1); Bilirubin, Total 0.8 mg/dL (0.2-1.2); Calc. Creatinine Clearance 0 mL/min (70-130); Calcium 9.1 mg/dL (7.8-10.44); Carbon Dioxide 29 mmol/L (23-31); Chloride 104 mmol/L (98-107); Estimated GFR-MDRD 46; Globulin 2.8 g/dL (2.4-3.5); Glucose 136 mg/dL (83-110); Potassium 3.7 mmol/L (3.5-5.1); Protein, Total 6.7 g/dL (6.0-8.3); Sodium 140 mmol/L (136-145)
[2019-03-10] MEDS ORDERED: predniSONE 20 MG TAB ONE (21:03)
== END 2019-03-10 22:44 | disposition home or self-care (01) ==
LOC: ERS 17:48
DX: J18.9 Pneumonia, unspecified organism (principal); E78.5 Hyperlipidemia, unspecified; E78.00 Pure hypercholesterolemia, unspecified; I10 Essential (primary) hypertension; I48.91 Unspecified atrial fibrillation; Z79.01 Long term (current) use of anticoagulants; Z79.899 Other long term (current) drug therapy; Z79.82 Long term (current) use of aspirin
CPT/HCPCS: 36415; 71046; 80053; 83605; 85025; J7512; J7620

== ENCOUNTER 2021-10-17 12:54 | Outpatient (CLI) | payer MEDICARE | END 2021-10-17 12:55 | disposition home or self-care (01) | LOC: RAD 12:54 | PROVIDERS: ATTEND Nurse Practitioner Family | DX: R06.00 Dyspnea, unspecified (principal) | CPT/HCPCS: 36415; 71046; 83880 ==